=== PATIENT | female | born 1950 | race Caucasian/White ===

== ENCOUNTER 2020-11-07 12:09 | Outpatient (REF) | payer MEDICARE, MEDICAID, SELFPAY ==
--- NOTE | 2020-11-07 11:30 | PAPFT_PTH ---
PATIENT: Jenny Egan LOC: [facility] U#:[id number] AGE/SX: 70/F ROOM: RE11/07/[address]: Mary Anne Mcintyre NP : 1950 BED: DIS: 11/07/2020 SPEC #: [id number] RECD: 11/07/20 17:28 STATUS: JERRY RERosalia #: [id number] GOVIND: 11/07/20 11:[address]: Mary Anne Mcintyre NP DEPT: [facility] Cytology RECD BY: Kamilla Arreola ENTERED: 11/07/20 17:29 SP TYPE: PAPFT OTHR DR: Leatha Devine Tissues: 1 - CX/ENDOCX FOR PAP SMEARS Procedures: PAP THIN PREP/[facility] Screening HPV DNA PROBE Comments: [id number]
== END 2020-11-07 12:10 | disposition home or self-care (01) ==
LOC: LBN 12:09
PROVIDERS: PCP Nurse Practitioner Family; Visit Provider Nurse Practitioner Women's Health
DX: Z12.4 Encounter for screening for malignant neoplasm of cervix (principal); Z11.51 Encounter for screening for human papillomavirus (HPV)
CPT/HCPCS: 88142; 87624

== ENCOUNTER → 2023-10-01 14:08 | Outpatient (BNVA) | payer OTHER, MEDICAID, SELFPAY | PROVIDERS: PCP Nurse Practitioner Family; Referring Provider Nurse Practitioner Family; Visit Provider Student in an Organized Health Care Education/Training Program | DX: J44.9 Chronic obstructive pulmonary disease, unspecified (principal); J96.91 Respiratory failure, unspecified with hypoxia; E88.01 Alpha-1-antitrypsin deficiency; G47.30 Sleep apnea, unspecified; Z87.891 Personal history of nicotine dependence | CPT/HCPCS: 99214 ==

== ENCOUNTER → 2024-01-20 14:27 | Outpatient (BNVA) | payer OTHER, MEDICAID, SELFPAY | PROVIDERS: PCP Nurse Practitioner Family; Referring Provider Nurse Practitioner Family; Visit Provider Physician Assistant Surgical | DX: E88.01 Alpha-1-antitrypsin deficiency (principal); J44.9 Chronic obstructive pulmonary disease, unspecified; J96.91 Respiratory failure, unspecified with hypoxia; G47.30 Sleep apnea, unspecified; M85.88 Other specified disorders of bone density and structure, other site; Z87.891 Personal history of nicotine dependence | CPT/HCPCS: 99214 ==

== ENCOUNTER → 2024-04-22 10:49 | Outpatient (BNVA) | payer OTHER, MEDICAID, SELFPAY | PROVIDERS: PCP Nurse Practitioner Family; Referring Provider Nurse Practitioner Family; Visit Provider Internal Medicine ==

== ENCOUNTER 2024-04-22 11:41 | Outpatient (CLI) | payer OTHER, MEDICAID, SELFPAY ==
--- NOTE | 2024-04-22 11:34 | DI.RAD_ITS ---
Exam(s) XR CHEST 2V PA LATERAL EXAM: XR CHEST 2V PA LATERAL CLINICAL HISTORY: J69.0 r/o new aspiration pneumonia, has fevers and sweat, T17.908A foreign TECHNIQUE: 2D digital imaging was performed. Two views. COMPARISON: CT CT CHEST W/CONTRAST from 05/18/2020 FINDINGS: HEART: Normal size. Aorta: Not dilated. PULMONARY VASCULATURE: Normal. MEDIASTINUM: Unremarkable. LUNGS: Underlying interstitial changes. Question of scarring/atelectasis versus infiltrate at the me dial right lung base. PLEURAL SPACE: No pleural effusion or pneumothorax. BONE:Unremarkable for age. SOFT TISSUES: Unremarkable. IMPRESSION: Infiltrate versus atelectasis or scarring at the medial right lung base. DATA REPOSITORY: RADIATION DOSE DELIVERED:
== END 2024-04-22 12:01 ==
LOC: DI 11:43
PROVIDERS: PCP Nurse Practitioner Family; Visit Provider Internal Medicine
DX: J69.0 Pneumonitis due to inhalation of food and vomit
CPT/HCPCS: 99215; G2212; 71046

== ENCOUNTER 2024-05-24 15:59 | Outpatient (CLI) | payer OTHER, MEDICAID, SELFPAY ==
--- NOTE | 2024-05-24 | DI.RAD_ITS ---
Exam(s) XR CHEST 2V PA LATERAL EXAM: XR CHEST 2V PA LATERAL CLINICAL HISTORY: Aspiration. TECHNIQUE: 2D digital imaging was performed. COMPARISON: CR XR CHEST 2V PA LATERAL from 04/22/2024 FINDINGS: 2 views: Heart size is upper normal. The mediastinum is not widened. Appearance of the lungs is unchanged from 04/22/2024. There is scarring or platelike atelectasis in lateral aspect both lung bases. No new confluent infiltrates nor pleural effusions. No significant osseous findings. IMPRESSION: Persistent scarring or atelectasis in both lung bases. Minimal if any significant radiographic monteiro e compared to images of 04/22/2024. DATA REPOSITORY: RADIATION DOSE DELIVERED:
== END 2024-05-24 16:19 ==
LOC: DI 16:00
PROVIDERS: PCP Nurse Practitioner Family; Visit Provider Nurse Practitioner Family
DX: J98.11 Atelectasis (principal)
CPT/HCPCS: 71046

== ENCOUNTER → 2024-10-20 10:02 | Outpatient (BNVA) | payer MEDICARE, MEDICAID, SELFPAY | PROVIDERS: PCP Nurse Practitioner Family; Referring Provider Nurse Practitioner Family; Visit Provider Physician Assistant Surgical | DX: E88.01 Alpha-1-antitrypsin deficiency (principal); G47.33 Obstructive sleep apnea (adult) (pediatric); J44.9 Chronic obstructive pulmonary disease, unspecified; J96.91 Respiratory failure, unspecified with hypoxia; E11.9 Type 2 diabetes mellitus without complications; M85.88 Other specified disorders of bone density and structure, other site; I27.20 Pulmonary hypertension, unspecified; Z87.891 Personal history of nicotine dependence | CPT/HCPCS: 99214 ==

== ENCOUNTER → 2025-05-08 14:04 | Outpatient (BNVA) | payer MEDICARE, MEDICAID, SELFPAY | PROVIDERS: PCP Nurse Practitioner Family; Referring Provider Nurse Practitioner Family; Visit Provider Physician Assistant Surgical | DX: J44.9 Chronic obstructive pulmonary disease, unspecified (principal); E88.01 Alpha-1-antitrypsin deficiency; G47.30 Sleep apnea, unspecified; J96.91 Respiratory failure, unspecified with hypoxia; M85.88 Other specified disorders of bone density and structure, other site; I27.20 Pulmonary hypertension, unspecified; Z87.891 Personal history of nicotine dependence | CPT/HCPCS: 99214 ==

== ENCOUNTER 2025-05-08 14:53 | Outpatient (CLI) | payer MEDICARE, MEDICAID, SELFPAY ==
--- NOTE | 2025-05-08 14:45 | RT.EKG_ITS ---
APPROVED REPORT Exam: Resting ECG Reason for Exam: irregular heart beat and bradycardia Patient Location: O HR:90 bpm ECG Measurements Heart Rate 90 AXIS SD 160 P 61 QRSd 96 QRS -33 QT 360 T 64 QTc 441 Conclusion Sinus rhythm...normal P axis, V-rate 50- 99 Ventricular bigeminy...bigeminy string>4 w/ V complexes Probable left atrial enlargement...P >50mS, <-0.10mV V1 Left axis deviation...QRS axis (-30,-90) Low voltage, precordial leads...precordial leads <1.0mV
== END 2025-05-08 14:54 | disposition home or self-care (01) ==
PROVIDERS: PCP Nurse Practitioner Family; Referring Provider Physician Assistant Surgical; Visit Provider Physician Assistant Surgical
DX: R00.1 Bradycardia, unspecified (principal)
CPT/HCPCS: 93005; 93010